=== PATIENT | female | born 2000 | race Caucasian/White ===

== ENCOUNTER 2024-10-10 10:06 | Outpatient (CLI) | payer OTHER, SELFPAY ==
--- NOTE | 2024-10-10 10:39 | DI.RAD_ITS ---
Exam(s) XR KNEE LT 3V AP,LAT,MICA EXAM: XR KNEE LT 3V AP,LAT,MICA CLINICAL HISTORY: Pain in lt knee, M25.562. TECHNIQUE: 2D digital imaging was performed. COMPARISON: No exams were available for comparison FINDINGS: 3 views There is evidence of previous ACL surgery. There is no evidence of acute fracture but there does appear to be a moderate size joint effusion.. No joint space narrowing The AP view there is a small corticated density seen medially near the level of the MCL/medial collat eral ligament but without appearance an acute avulsion injury. IMPRESSION: Previous ACL surgery. Joint effusion noted. This may indicate internal derangement including possib le ACL graft injury or otherwise. If clinically indicated follow-up MRI can be performed for added s ensitivity and specificity. DATA REPOSITORY: RADIATION DOSE DELIVERED:
== END 2024-10-10 10:26 ==
PROVIDERS: Visit Provider Physician Assistant Medical
DX: M25.562 Pain in left knee (principal); Z98.890 Other specified postprocedural states
CPT/HCPCS: 73562

== ENCOUNTER 2024-10-23 02:57 | Outpatient (CLI) | payer OTHER, SELFPAY ==
--- NOTE | 2024-10-23 | DI.MRI_ITS ---
Exam(s) MR LOWER JOINT LT WO EXAM: MR LOWER JOINT LT WO CLINICAL HISTORY: DERANGEMENT LT KNEE,M23.92. TECHNIQUE: Multiplanar multisequence MRI was performed. COMPARISON: CR XR KNEE LT 3V AP,LAT,MICA from 10/10/2024 FINDINGS: BONES: There is no fracture or contusion pattern. Metallic artifact due to prior surgery create artif act. JOINTS: No joint effusion is present. Articular cartilage: Patellofemoral joint: Articular cartilage is unremarkable. Medial femoral tibial joint: Articular cartilage is unremarkable. Lateral femoral tibial joint: Articular cartilage is unremarkable. LIGAMENTS/TENDONS: Anterior Cruciate: ACL repair which appears intact. Posterior Cruciate: Unremarkable. Medial Collateral:Unremarkable. Lateral Collateral ligament complex: Unremarkable. Extensor mechanism: Unremarkable. Medial retinaculum: Unremarkable. Lateral retinaculum: Unremarkable. Popliteus: Unremarkable. MENISCI: The medial meniscus is unremarkable. The lateral meniscus is unremarkable. MUSCLES: Unremarkable. SOFT TISSUES: Song's cyst measuring roughly 2 by 2 by 5 cm. IMPRESSION: Exam somewhat limited due to metallic artifact related to prior surgery. No evidence of ligament tear or meniscal tear. Song's cyst. DATA REPOSITORY:
== END 2024-10-23 03:17 ==
PROVIDERS: Visit Provider Physician Assistant Medical
DX: M23.92 Unspecified internal derangement of left knee (principal)
CPT/HCPCS: 73721

== ENCOUNTER 2025-10-07 08:08 | Emergency (ER) | payer OTHER, SELFPAY ==
[2025-10-07 08:27] VITALS: BP 133/66; PULSE 69; RESP 19; TEMP 36.6; O2SAT 98
[2025-10-07 08:47] LABS: Glucose Negative (Negative)
[2025-10-07 08:56] LABS: RBC 0-2 HPF (0-2)
--- NOTE | 2025-10-07 08:58 | W.ED.GENAD ---
Discharge Plan Disposition Patient Disposition: Home Condition: Good Discharge Details Clinical Impression: Chronic nausea, Nausea & vomiting Primary Care Provider: None,None ED Provider: Kirsten Hendrickson Home Meds and New Rx's Prescriptions: New ondansetron 4 mg tablet,disintegrating 4 mg PO Q6H PRN (Reason: nausea and vomiting) Qty: 20 0RF Continued venlafaxine 75 mg capsule,extended release 24hr 75 mg PO DAILY tretinoin [Retin-A] 0.1 % cream 1 applic topical QHS Discharge Instructions Instructions: Nausea and Vomiting, Adult ED Additional Instructions: As we discussed, your exam and labs are reassuring here today. No evidence to suggest acute dehydration, electrolyte derangement, problems your liver or your pancreas. You are not anemic. I am concerned regarding your continued symptoms. I am worried that this could be associated with stress and anxiety and feel that taking your venlafaxine at night on a regular basis could help with this. You may also need an increase in your dose which you could discuss with your primary care about your upcoming appointment on Tuesday. Please continue with your therapist. Please keep a detailed journal of your symptoms as this may also identify another trigger aside from stress such as food, timing of eating, alcohol consumption versus other trigger. Please continue to encourage hydration. You may use the Zofran as prescribed to help with any acute nausea. Please also begin vitamin B which is available [id number] as this too can help with nausea and vomiting. Please take this at night prior to bed. If you develop any new or worsening symptoms please seek care urgently once again but otherwise, please keep your upcoming appoint with your primary care. You may require an upper endoscopy as it has been going on for so many years but again, please discuss with your provider at your upcoming appointment. Stand Alone Forms: Portal Information Discharge Data Discharge Date/Time-TO BE ENTERED AT DEPARTURE: 10/07/25 11:03 HPI General Date/Time Provider Initiated Documentation: 10/07/25 08:19. Limitations to Documentation: no limitations. Information obtained by: patient and RN notes reviewed. History of Present Illness 25 year old F presents to the emergency department with the chief complaint of Chronic nausea, vomiting present in the morning, described as moderate and similar to prior episodes, Patient started experiencing this year(s) and it has been intermittent. No relieving factors improve symptom(s), Other factors that worsen symptoms (Stress) . Patient notes loss of appetite and nausea/vomiting; denies chest pain, cough, fever/chills, rash, shortness of breath and weakness. Patient did receive the following treatments prior to arrival, none Related Data Home Medications ?Medication ?Instructions ?Recorded ?Confirmed ondansetron 4 mg disintegrating 4 mg PO Q6H PRN nausea and 10/07/25 tablet vomiting #20 tabs tretinoin 0.1 % topical cream 1 applic topical QHS 10/07/25 10/07/25 (Retin-A) venlafaxine 75 mg capsule,extended 75 mg PO DAILY 10/07/25 10/07/25 release 24 hr Previous Rx's ?Medication ?Instructions ?Recorded ondansetron 4 mg disintegrating 4 mg PO Q6H PRN nausea and 10/07/25 tablet vomiting #20 tabs Allergies Allergy/AdvReac Type Severity Reaction Status Date / Time No Known Drug Allergies Allergy Severe Unknown Verified 10/07/25 08:33 General Stated Complaint: Nausea/Vomit/Diar BRIAN: 3 Review of Systems Constitutional Constitutional: Reports as per HPI, Denies chills, Denies fatigue and Denies fever(s) Cardiovascular Cardiovascular: Reports as per HPI, Denies chest pain and Denies dyspnea Respiratory Respiratory: Reports as per HPI, Denies cough and Denies dyspnea Gastrointestinal Gastrointestinal: Reports as per HPI Musculoskeletal Musculoskeletal: Reports as per HPI and Denies back pain Integumentary/Breasts Skin/Breast: Reports as per HPI and Denies rash Neurologic Neurologic: Reports as per HPI Endocrine Endocrine: Denies fatigue Exam Const General: cooperative, healthy appearing, comfortable, no acute distress and well developed Nutritional Appearance: average body habitus and well nourished Orientation: alert and awake [facility] Head: normal to inspection Mouth: moist mucous membranes Resp Effort & Inspection: normal respiratory effort, able to speak in complete sentences and no respiratory distress Auscultation: clear to auscultation bilaterally, no rales, no rhonchi and no wheezes Cardio Rate: regular rate Rhythm: regular rhythm Heart Sounds: S1 normal and S2 normal GI Inspection: normal to inspection Palpation: soft, no hepatosplenomegaly, no guarding, no hernias, no masses, no pulsatile masses and tender in the epigastrum Percussion: normal to percussion Auscultation: normal bowel sounds Back/Spine/Pelvis Back: no CVA tenderness Skin General skin exam: no rashes or lesions noted Trauma: no lacerations or abrasions Neuro General: patient alert and patient awake Cognition: normal cognition Speech: speech normal Gait: normal gait Psych Appearance: grossly normal and well kempt Mental Status: mental status grossly normal Speech and Movement: speech and movement normal Course Vital Signs Vital signs: Vital Signs Temperature 36.6 C 10/07/25 08:27 Pulse 69 10/07/25 08:27 Respiratory Rate 19 10/07/25 08:27 Blood Pressure 133/66 10/07/25 08:27 Pulse Oximetry 98 10/07/25 08:27 Temperature 36.6 C 10/07/25 08:27 Temperature Source Temporal Artery Scan 10/07/25 08:27 Pulse 69 10/07/25 08:27 Respiratory Rate 19 10/07/25 08:27 Blood Pressure 133/66 10/07/25 08:27 Blood Pressure Position Sitting 10/07/25 08:27 Pulse Oximetry 98 10/07/25 08:27 Oxygen Delivery Method Room Air 10/07/25 08:27 Oxygen Flow Rate 0 10/07/25 08:27 Pain Level 7 10/07/25 08:27 Lab/Test Results Lab/Test Results: Laboratory Tests Range/Units 10/07/25 08:37 Urine Color (Yellow) Yellow Urine Clarity (Clear) Clear Urine pH (5-8) 7.0 Ur Specific [place] (1.005-1.025) 1.015 Urine Protein (Neg-Trace) mg/dL Negative Urine Ketones (Negative) mg/dL Negative Urine Blood (Negative) Trace-intact H Urine Nitrite (Negative) Negative Urine Bilirubin (Negative) Negative Urine Urobilinogen (Up to 0.2) mg/dL 0.2 Ur Leukocyte Esterase (Negative) Negative Urine Glucose (Negative) mg/dL Negative POC- Test(urine) Negative Medical Decision Making Patient is a pleasant 25-year-old female, past medical history significant for anxiety, presented with chief complaint of nausea and vomiting. She reports that this happening in the morning often for several weeks at a time over the past 5 to 6 years. She attributes this to first beginning college and an increase in stress. She reports that with the nausea vomiting she is not able to take her venlafaxine. She does report that she has had increased anxiety and stress around applying to [employer] school. She reports she has discussed this historically with her primary care provider who had her start on PPI without any improvement in her symptoms. She has not had any formal evaluation of this. Reports that she does drink alcohol intermittently, about 2-3 nights a week. Smokes marijuana occasionally but has never had daily use. No significant change in her diet. Has tried illumination diets in the past without any change or improvements. Finds that her symptoms do improve when she is out an active day. However, in the morning she is otherwise feeling unwell from the time she wakes up to typically around 11 or 12. On exam, patient appears nontoxic. She is intermittently tearful when discussing everything that is currently going on with her. She is hemodynamically stable. Lungs are clear, normal cardiac exam. Abdominal exam significant for epigastric tenderness. No other significant abdominal pain and no peritoneal findings on exam. Really concern for issues around untreated anxiety and overall stress. This does not seem to be linked as with food, I have low suspicion for biliary colic or other biliary tree mediated etiology. She is not any alcohol or known elevations in LFTs or again, issues with her gallbladder, although suspicion for pancreatitis. Patient had negative test. While they have been treating her for presumed acid reflux, her symptoms are normal when she first lays down or after eating. No food triggers that she is aware of although patient would benefit from monitoring the symptoms more closely to try to better identify triggers as well as relieving factors. Will obtain labs and offer IV hydration and antiemetic and reevaluate the patient. Labs are reassuring here today. No leukocytosis. No electrolyte abnormalities. Patient is not anemic. Again, negative test. She has a small amount of blood in her urine the patient does have an IUD placed and does intermittently have small amount of spotting. Discussed these findings with the patient. Do not see indication at this point for imaging. I advised that this could be stress mediated or associated with food intolerance. She does report that she has tried cutting things out of her diet in the past and has struggled to find anything that adds benefit. Encouraged hydration and supportive care. Will continue on Zofran. Zofran worked well for her in the past and worked well for her again today. Will continue to be fatigued and mildly nauseated, she is overall feeling improved. We did discuss that she may require an EGD as the symptoms have been going on for several years. As her insurance is based out of [place], as is her primary care, I did advise that she try to discuss this with them further to ensure that she can get have appropriate coverage should she have specialty follow-up. She has a follow-up appointment with her primary care on Tuesday. In the interim, will use Zofran for any recurrent symptoms, supportive care and keep a journal for further symptom identification. Return precautions were discussed. All of her questions and concerns were addressed and she is in agreement this plan. Dictation completed using [employer] dictation software. Please excuse any errors or building rigger anomalies that may remain. PFSH All Active Problems (Updated 10/07/25 @ 10:25 by GABY Palmer) Nausea & vomiting (Acute) Chronic nausea (Acute) Social History Smoking risk assessment performed?: No Alcohol Intake: never Substance use type: does not use Housing: apartment
[2025-10-07 09:04] LABS: C & S Indicated? No; WBC 0-2 HPF (0-5)
[2025-10-07 09:13] LABS: Abs Immature Grans 0.01 10^3/uL (0.0-0.06); HCT 39.2 % (36.0-46.0); HGB 13.4 g/dL (11.2-15.7); Immature Grans % 0.2 %; MCH 30.0 pg (27.0-33.0); MCHC 34.2 % (32.0-36.0); MCV 88 fL (80-95); MPV 8.7 fL (8.0-11.0); Platelet Count 320 10^3/uL (130-400); RBC 4.47 10^6/uL (3.93-5.22); RDW 12.1 % (11.7-14.6); RDW-SD 39.2 fL; WBC 5.72 10^3/uL (4.4-10.8)
[2025-10-07] MEDS: Ondansetron 4 MG/2 ML VIAL IVP (09:13)
[2025-10-07] MEDS: Pantoprazole 40 MG VIAL IVP (09:13)
[2025-10-07] MEDS: Lactated Ringers 1,000 ML 1000 ML IV (09:14)
[2025-10-07 09:25] LABS: Lipase 46 U/L (<53); Magnesium 2.0 mg/dL (1.6-2.6)
[2025-10-07 09:27] LABS: ALT 15 U/L (10-49); AST 27 U/L (<34); Albumin 4.8 g/dL (3.2-5.0); Alkaline Phosphatase 61 U/L (46-116); Anion Gap 9.3 mmol/L (3-11); BUN 10 mg/dL (9-23); Bilirubin, Total 1.00 mg/dL (0.2-1.2); CO2 24.7 mmol/L (20.0-31.0); Calcium 9.7 mg/dL (8.3-10.6); Chloride 107 mmol/L (98-107); Glucose 101 mg/dL (74-106); Potassium 3.6 mmol/L (3.5-5.1); Sodium 141 mmol/L (136-145); Total Protein 7.7 g/dL (5.7-8.2)
[2025-10-07 10:52] VITALS: BP 110/49; PULSE 64; RESP 16; O2SAT 100
--- NOTE | 2025-10-13 13:28 | NUR.NOTE ---
Accessed Pt chart to see if the Provider on her last visit put in a referral for [facility]. Then she corrected herself, and said that they provider would put one in if she needs it. I will talk with provider who is working today to see if there is any note stating that the other provider wanted the referral sent.
== END 2025-10-07 11:03 | disposition home or self-care (01) ==
PROVIDERS: Emergency Provider Physician Assistant
DX: R11.2 Nausea with vomiting, unspecified (principal)
CPT/HCPCS: 80053; 81025; 83690; 96361; 96374; 96375; 99284; 81003; 81015; 83735; 85025; 99283; J2405; J2470